=== PATIENT | male | born 1970 | race Two or more races ===

== ENCOUNTER 2020-05-31 06:56 | Inpatient (IN) | payer MEDICARE, OTHER ==
[~2020-05-31] VITALS: Ht 182.9 cm; Wt 186.0 kg
--- NOTE | 2020-05-31 07:10 | NUR ---
MS/RN NOTES PATIENT DIRECT ADMIT FROM [facility] IS [employer] [address] LBS, AMBULATORY WITH ASSIST COMPLAINING OF ABDOMINAL PAIN OF 10/10 LEVEL, ON OXYGEN VIA NC AT 2LITER. PATIENT CALM IN BEHAVIOR, RESPIRATIONS EVEN AND UNLABORED, TO ENDORSE TO AM RN FOR VIRGIE.
[2020-05-31 08:00] VITALS: BP 153/100
--- NOTE | 2020-05-31 08:00 | NUR ---
MS RN OPENING NOTES Received Patient resting in bed. A/O x 4. VS stable with no acute distress. Breathing even and unlabored on room air with no respiratory distress. Patient stated pain level of 10/10 on abdomen and back. Will intervene as ordered. 20g PIV on left hand clean, intact, patent and flushing well. Safety precautions in place. Bed locked and set to lowest position with side rails x 2 up. All needs rendered at this time. Call light within reach. Will continue to monitor.
[2020-05-31] MEDS ORDERED: PREG100C55 MT (08:39)
[2020-05-31] MEDS ORDERED: BENA40TA8 MT (08:39)
[2020-05-31] MEDS ORDERED: DAPA10TA MT (08:39)
[2020-05-31] MEDS ORDERED: SPIR25TA6 MT (08:39)
[2020-05-31] MEDS ORDERED: AMIT50TA3 MT (08:39)
[2020-05-31] MEDS ORDERED: DEXL60CA3 MT (08:39)
[2020-05-31] MEDS ORDERED: DULA1.5P SQ (08:39)
[2020-05-31] MEDS ORDERED: INSU500V SQ (08:39)
[2020-05-31] MEDS ORDERED: METF-442 MT (08:39)
[2020-05-31] MEDS ORDERED: DIGO250T MT (08:39)
[2020-05-31] MEDS ORDERED: LEVE500T20 MT (08:39)
[2020-05-31] MEDS ORDERED: Z GUARD REMEDY 2 OZ OINT TP PRN (10:00)
[2020-05-31] MEDS ORDERED: ONDANSETRON HCL/PF 4 MG/2 ML VIAL IVP PRN (10:00)
[2020-05-31] MEDS ORDERED: ACETAMINOPHEN 325 MG TABLET PO PRN (10:00)
[2020-05-31] MEDS ORDERED: ZOLPIDEM TARTRATE 5 MG TABLET PO PRN (10:00)
[2020-05-31] MEDS: MORPHINE SULFATE INJ 2 MG/ML DISP.SYRIN IV PRN ×2 (10:05→19:05)
[2020-05-31] MEDS ORDERED: DEXTROSE 50%-WATER 50 ML DISP.SYRIN IV PRN (11:00)
[2020-05-31] MEDS: PANTOPRAZOLE 40 MG VIAL IV SCH (11:21)
[2020-05-31] MEDS: LEVETIRACETAM (250 MG) 250 MG TABLET PO SCH ×2 (11:21→20:34)
[2020-05-31] MEDS: BLOOD SUGAR DIAGNOSTIC 1 EACH STRIP IN SCH ×2 (11:34→17:21)
[2020-05-31] MEDS: INSULIN REGULAR, HUMAN 100 UNIT/ML 3 ML VIAL SQ PRN ×2 (11:46→17:38)
[2020-05-31 11:49] LABS: BASOPHILS % (AUTO) 0.1 % (0.0-2.0); EOSINOPHILS % (AUTO) 0.7 % (0.0-6.0); HEMATOCRIT 39 % (39-51); HEMOGLOBIN 12.6 g/dL (13.5-17.5); LYMPHOCYTES # (AUTO) 0.7 /CMM (0.8-4.8); LYMPHOCYTES % (AUTO) 10.8 % (20.0-44.0); MEAN CORPUSCULAR HGB CONC 32 g/dl (31.0-36.0); MEAN CORPUSCULAR VOLUME 93 fL (80-96); MONOCYTES # (AUTO) 0.8 /CMM (0.1-1.30); MONOCYTES % (AUTO) 12.4 % (2.0-12.0); NEUTROPHILS # (AUTO) 4.9 /CMM (1.8-8.9); PLATELET COUNT (AUTO) 204 /CMM (150-450); RED BLOOD CELL COUNT(AUTO) 4.25 MIL/uL (4.5-6.0); WHITE BLOOD COUNT (AUTO) 6.5 K/uL (4.3-11.0)
[2020-05-31 12:08] LABS: CALCIUM, SERUM 8.4 mg/dL (8.5-10.1); CREATININE 0.9 mg/dL (0.6-1.3); POTASSIUM 4.5 mmol/L (3.5-5.1)
[2020-05-31] MEDS: HEPARIN SODIUM, PORCINE 5000 UNITS/1 ML VIAL SQ SCH ×2 (12:44→20:38)
[2020-05-31] MEDS: DIGOXIN 0.125 MG TABLET PO SCH (12:45)
[2020-05-31] MEDS: IV NS 0.9% 1,000 ML IV PRN (14:29)
[2020-05-31 16:00] VITALS: BP 140/100
[2020-05-31] MEDS: PREGABALIN 100 MG CAPSULE PO SCH (17:39)
--- NOTE | 2020-05-31 18:50 | NUR ---
MS RN NOTES Obtained MRSA specimen via right nares at this time. Patient tolerated well.
--- NOTE | 2020-05-31 19:39 | NUR ---
MS RN CLOSING NOTES Patient resting in bed. A/O x 4. VS stable with no acute distress. Breathing even and unlabored on room air with no respiratory distress. Patient stated tolerable pain level on abdomen. Will endorse to oncoming shift. 20g PIV on left hand clean, intact, patent and flushing well with NS infusing at 75ml/hr. Safety precautions in place. Bed locked and set to lowest position with side rails x 2 up. All needs rendered at this time. Call light within reach. Will endorse plan of care to oncoming shift.
--- NOTE | 2020-05-31 19:40 | NUR ---
MS RN OPENING NOTES PATIENT RECEIVED RESTING IN BED A/O X 4. STABLE ON RA WITH BREATHING EVEN AND UNLABORED, NO SOB NOTED. NO SIGNS OF ACUTE DISTRESS. NO CURRENT COMPLAINTS OF PAIN OR DISCOMFORT. PATIENT REMAINING NPO THROUGHOUT THE NIGHT. IF LOCATED ON L HAND #20 RUNNING NS @ 75ML/HR. SAFETY PRECAUTIONS IN PLACE WITH BED IN LOWEST POSITION, CALL LIGHT WITHIN REACH, BREAKS ON, SIDE RAILS UP. WILL CONTINUE TO MONITOR THROUGHOUT THE SHIFT.
[2020-05-31 20:15] VITALS: BP 146/63
[2020-05-31] MEDS: HYDROCODONE/APAP 5/325MG TABLET PO PRN (22:40)
[2020-05-31] MEDS: MAGNESIUM HYDROXIDE 30 ML UDC PO PRN (22:42)
[2020-06-01] MEDS: BLOOD SUGAR DIAGNOSTIC 1 EACH STRIP IN SCH ×4 (00:17→17:53)
[2020-06-01] MEDS: INSULIN REGULAR, HUMAN 100 UNIT/ML 3 ML VIAL SQ PRN ×4 (00:19→17:54)
[2020-06-01] MEDS: MORPHINE SULFATE INJ 2 MG/ML DISP.SYRIN IV PRN ×2 (03:56→14:15)
--- NOTE | 2020-06-01 07:01 | NUR ---
MS RN CLOSING NOTES PATIENT RESTING IN BED A/O X 4. STABLE ON RA WITH BREATHING EVEN AND UNLABORED, NO SOB NOTED. NO SIGNS OF ACUTE DISTRESS. NO CURRENT COMPLAINTS OF PAIN OR DISCOMFORT. PATIENT REMAINING NPO THROUGHOUT THE NIGHT. IF LOCATED ON R HAND #24 RUNNING NS @ 75ML/HR. SAFETY PRECAUTIONS IN PLACE WITH BED IN LOWEST POSITION, CALL LIGHT WITHIN REACH, BREAKS ON, SIDE RAILS UP. ALL NEEDS ATTENDED TO. WILL ENDORSE TO ONCOMING SHIFT ABOUT VIRGIE.
[2020-06-01 07:30] LABS: BASOPHILS % (AUTO) 0.2 % (0.0-2.0); EOSINOPHILS % (AUTO) 0.7 % (0.0-6.0); HEMATOCRIT 36 % (39-51); HEMOGLOBIN 11.6 g/dL (13.5-17.5); LYMPHOCYTES % (AUTO) 14.9 % (20.0-44.0); MEAN CORPUSCULAR HGB CONC 33 g/dl (31.0-36.0); MEAN CORPUSCULAR VOLUME 92 fL (80-96); MONOCYTES # (AUTO) 0.9 /CMM (0.1-1.30); MONOCYTES % (AUTO) 12.9 % (2.0-12.0); NEUTROPHILS # (AUTO) 4.9 /CMM (1.8-8.9); NEUTROPHILS % (AUTO) 71.3 % (43.0-81.0); PLATELET COUNT (AUTO) 211 /CMM (150-450); RED BLOOD CELL COUNT(AUTO) 3.88 MIL/uL (4.5-6.0); WHITE BLOOD COUNT (AUTO) 6.9 K/uL (4.3-11.0)
[2020-06-01 07:53] LABS: CALCIUM, SERUM 8.3 mg/dL (8.5-10.1); CREATININE 0.9 mg/dL (0.6-1.3); MAGNESIUM 2.3 mg/dL (1.8-2.4); POTASSIUM 4.4 mmol/L (3.5-5.1)
[2020-06-01 08:00] VITALS: BP 125/80
--- NOTE | 2020-06-01 08:00 | NUR ---
MS RN OPENING NOTES Received Patient resting in bed. A/O x 4. VS stable with no acute distress. Breathing even and unlabored on room air with no respiratory distress. Patient stated tolerable pain level on abdomen. Will continue to monitor and intervene as ordered. 24g PIV on right hand clean, intact, patent and flushing well. Safety precautions in place. Bed locked and set to lowest position with side rails x 2 up. All needs rendered at this time. Call light within reach. Will continue to monitor.
--- NOTE | 2020-06-01 08:30 | NUR ---
MS RN NOTES Obtained consent for Midline Insertion. Explained risks and benefits. Patient agreed. Placed signed consent in chart.
[2020-06-01] MEDS: AMITRIPTYLINE HCL 25 MG TABLET PO SCH (09:52)
[2020-06-01] MEDS: SPIRONOLACTONE 25 MG TABLET PO SCH (09:52)
[2020-06-01] MEDS: LEVETIRACETAM (250 MG) 250 MG TABLET PO SCH ×2 (09:52→21:37)
[2020-06-01] MEDS: BENAZEPRIL HCL 20 MG TABLET PO SCH (09:53)
[2020-06-01] MEDS: HEPARIN SODIUM, PORCINE 5000 UNITS/1 ML VIAL SQ SCH ×2 (09:53→21:47)
[2020-06-01] MEDS: PREGABALIN 100 MG CAPSULE PO SCH ×2 (09:53→16:43)
[2020-06-01] MEDS: PANTOPRAZOLE 40 MG VIAL IV SCH (10:24)
[2020-06-01] MEDS: HYDROCODONE/APAP 5/325MG TABLET PO PRN (10:25)
[2020-06-01] MEDS ORDERED: K PHOS NEUTRAL 250 MG TABLET PO ONE (10:30)
--- NOTE | 2020-06-01 10:33 | NUR ---
WOUND CARE CONSULT: PT PRESENTS WITH SCARRING TO CHEST AND SOME RASH/REDNESS TO ABDOMINAL/GROIN FOLDS, PRESENT ON ADMISSION. RECOMMENDATIONS MADE FOR SKIN CARE AND PROTECTION. DISCUSSED WITH NURSING STAFF. WILL SEE PRLinden CASTRO IN AGREEMENT WITH PLAN OF CARE.
[2020-06-01] MEDS: DIGOXIN 0.125 MG TABLET PO SCH (13:29)
[2020-06-01 16:00] VITALS: BP 118/70
[2020-06-01] MEDS: CLOTRIMAZOLE 1% 15 GM TUBE TP SCH (16:43)
[2020-06-01] MEDS: SENNOSIDES/DOCUSATE SODIUM 1 TAB TABLET PO SCH (16:43)
[2020-06-01] MEDS: IV NS 0.9% 1,000 ML IV PRN (17:56)
--- NOTE | 2020-06-01 19:39 | NUR ---
MS RN CLOSING NOTES Patient resting in bed. A/O x 4. VS stable with no acute distress. Breathing even and unlabored on room air with no respiratory distress. Patient stated tolerable pain level on abdomen. Will endorse to oncoming shift. 20g PIV on RFA clean, intact, patent and flushing well. 20g PIV on LFA clean, intact, patent and flushing well with NS infusing at 75ml/hr. Safety precautions in place. Bed locked and set to lowest position with side rails x 2 up. All needs rendered at this time. Call light within reach. Will endorse plan of care to oncoming shift.
[2020-06-01 20:00] VITALS: BP 130/78
--- NOTE | 2020-06-01 21:31 | NUR ---
MS RN NOTES bariatric bed delivered, settled patient into bed.
[2020-06-01] MEDS: MAGNESIUM HYDROXIDE 30 ML UDC PO PRN (21:48)
--- NOTE | 2020-06-01 22:31 | NUR ---
MS RN OPENING NOTES PATIENT RECEIVED RESTING IN BED A/O X 4. STABLE ON RA WITH BREATHING EVEN AND UNLABORED, NO SOB NOTED. NO SIGNS OF ACUTE DISTRESS. NO CURRENT COMPLAINTS OF PAIN OR DISCOMFORT. PATIENT REMAINING NPO THROUGHOUT THE NIGHT. IF LOCATED ON LFA HAND #20 RUNNING NS @ 75ML/HR AND RFA #20SL. SAFETY PRECAUTIONS IN PLACE WITH BED IN LOWEST POSITION, CALL LIGHT WITHIN REACH, BREAKS ON, SIDE RAILS UP. WILL CONTINUE TO MONITOR THROUGHOUT THE SHIFT.
[2020-06-02] MEDS: BLOOD SUGAR DIAGNOSTIC 1 EACH STRIP IN SCH ×5 (00:11→23:42)
[2020-06-02] MEDS: INSULIN REGULAR, HUMAN 100 UNIT/ML 3 ML VIAL SQ PRN ×5 (00:21→23:50)
--- NOTE | 2020-06-02 06:50 | NUR ---
MS RN CLOSING NOTES PATIENT RESTING IN BED A/O X 4. STABLE ON RA WITH BREATHING EVEN AND UNLABORED, NO SOB NOTED. NO SIGNS OF ACUTE DISTRESS. NO CURRENT COMPLAINTS OF PAIN OR DISCOMFORT. PATIENT. IV LOCATED ON LFA HAND #20 RUNNING NS @ 75ML/HR AND RFA #20SL. SAFETY PRECAUTIONS IN PLACE WITH BED IN LOWEST POSITION, CALL LIGHT WITHIN REACH, BREAKS ON, SIDE RAILS UP. ALL NEEDS ATTENDED TO. WILL ENDORSE TO ONCOMING SHIFT ABOUT VIRGIE.
[2020-06-02 08:00] VITALS: BP 139/81
[2020-06-02] MEDS: AMITRIPTYLINE HCL 25 MG TABLET PO SCH (08:54)
[2020-06-02] MEDS: SPIRONOLACTONE 25 MG TABLET PO SCH (08:54)
[2020-06-02] MEDS: PANTOPRAZOLE 40 MG VIAL IV SCH (08:54)
[2020-06-02] MEDS: PREGABALIN 100 MG CAPSULE PO SCH ×2 (08:54→16:57)
[2020-06-02] MEDS: LEVETIRACETAM (250 MG) 250 MG TABLET PO SCH ×2 (08:55→20:34)
[2020-06-02] MEDS: SENNOSIDES/DOCUSATE SODIUM 1 TAB TABLET PO SCH (08:55)
[2020-06-02] MEDS: BENAZEPRIL HCL 20 MG TABLET PO SCH (08:55)
[2020-06-02] MEDS: HEPARIN SODIUM, PORCINE 5000 UNITS/1 ML VIAL SQ SCH ×2 (08:58→20:36)
[2020-06-02 09:05] LABS: BASOPHILS % (AUTO) 0.5 % (0.0-2.0); EOSINOPHILS % (AUTO) 1.8 % (0.0-6.0); HEMATOCRIT 37 % (39-51); LYMPHOCYTES # (AUTO) 1.3 /CMM (0.8-4.8); LYMPHOCYTES % (AUTO) 22.9 % (20.0-44.0); MEAN CORPUSCULAR HGB CONC 32 g/dl (31.0-36.0); MEAN CORPUSCULAR VOLUME 93 fL (80-96); MONOCYTES # (AUTO) 0.7 /CMM (0.1-1.30); NEUTROPHILS # (AUTO) 3.5 /CMM (1.8-8.9); NEUTROPHILS % (AUTO) 61.8 % (43.0-81.0); PLATELET COUNT (AUTO) 238 /CMM (150-450); RED BLOOD CELL COUNT(AUTO) 4.02 MIL/uL (4.5-6.0); WHITE BLOOD COUNT (AUTO) 5.7 K/uL (4.3-11.0)
[2020-06-02] MEDS: CLOTRIMAZOLE 1% 15 GM TUBE TP SCH ×2 (09:05→16:57)
[2020-06-02 09:43] LABS: CALCIUM, SERUM 8.2 mg/dL (8.5-10.1); CREATININE 0.9 mg/dL (0.6-1.3); MAGNESIUM 2.2 mg/dL (1.8-2.4); PHOSPHORUS 1.3 mg/dL (2.5-4.9); POTASSIUM 4.3 mmol/L (3.5-5.1)
--- NOTE | 2020-06-02 13:00 | NUR ---
diet advanced and patient tolerated well No abdominal pain or N/V noted
[2020-06-02] MEDS: DIGOXIN 0.125 MG TABLET PO SCH (13:27)
[2020-06-02] MEDS ORDERED: Sodium Phosphate 15 MMOL in IV NS 0.9% 245 ML IV SCH (15:00)
[2020-06-02] MEDS: IV NS 0.9% 1,000 ML IV PRN (15:18)
[2020-06-02 16:24] VITALS: BP 133/76
--- NOTE | 2020-06-02 18:52 | NUR ---
Patient is resting in bed. A/O x 4. VS stable with no acute distress. Breathing even and unlabored on room air with no respiratory distress. Patient denies abdominal pain. Skin care provided. IV lines intact , patent and flushing well., Safety precautions in place. Bed locked and set to lowest position with side rails x 2 up. All needs attended at this time. Call light within reach. Will endorse to next shift for VIRGIE .
--- NOTE | 2020-06-02 19:30 | NUR ---
ms rn opening note received patient in bed. a/ox 4. tolerating room air. respirations are even and unlabored. no s/s sob noted. no s/s pain at this time. in no apparent distress. iv access in rfa#20 patent and saline locked, lfa#20 running ns @75ml/hr. bed is low an dlocked, hob flat, side rials up x3. call light within reach. will continue to monitor.
[2020-06-02 20:00] VITALS: BP 159/88
[2020-06-03] MEDS: BLOOD SUGAR DIAGNOSTIC 1 EACH STRIP IN SCH ×2 (05:14→11:36)
[2020-06-03] MEDS: INSULIN REGULAR, HUMAN 100 UNIT/ML 3 ML VIAL SQ PRN ×2 (05:22→11:40)
--- NOTE | 2020-06-03 06:23 | NUR ---
ms rn closing note patient in bed. a/ox 4. tolerating room air. respirations are even and unlabored. no sob noted. no c/o pain. no distress. iv access maintained in rfa#20 patent and saline locked, lfa#20 running ns @75ml/hr. bed remains low and locked, hob flat, side rials up x3. call light within reach. will endorse to next shift.
[2020-06-03 06:46] LABS: BASOPHILS % (AUTO) 0.5 % (0.0-2.0); EOSINOPHILS % (AUTO) 2.9 % (0.0-6.0); HEMATOCRIT 36 % (39-51); HEMOGLOBIN 11.4 g/dL (13.5-17.5); LYMPHOCYTES # (AUTO) 1.1 /CMM (0.8-4.8); LYMPHOCYTES % (AUTO) 24.7 % (20.0-44.0); MEAN CORPUSCULAR HGB CONC 32 g/dl (31.0-36.0); MEAN CORPUSCULAR VOLUME 93 fL (80-96); MONOCYTES # (AUTO) 0.6 /CMM (0.1-1.30); MONOCYTES % (AUTO) 13.1 % (2.0-12.0); NEUTROPHILS # (AUTO) 2.7 /CMM (1.8-8.9); NEUTROPHILS % (AUTO) 58.8 % (43.0-81.0); PLATELET COUNT (AUTO) 231 /CMM (150-450); RED BLOOD CELL COUNT(AUTO) 3.85 MIL/uL (4.5-6.0); WHITE BLOOD COUNT (AUTO) 4.6 K/uL (4.3-11.0)
[2020-06-03 07:08] LABS: CALCIUM, SERUM 8.5 mg/dL (8.5-10.1); CREATININE 0.9 mg/dL (0.6-1.3); MAGNESIUM 2.1 mg/dL (1.8-2.4); PHOSPHORUS 1.7 mg/dL (2.5-4.9)
--- NOTE | 2020-06-03 07:30 | NUR ---
RN NOTES Received patient in bed resting comfortably in moderate high back rest. A/O x 4. tolerating room air. No signs of distress noted at this time. IV access maintained in RFA#20 patent and saline locked, LFA#20 running NS @75ml/hr. Safety measures in place, bed remains low and locked, side rials up x3. call light within reach. will continue to monitor.
[2020-06-03 08:00] VITALS: BP 113/75
[2020-06-03] MEDS: BENAZEPRIL HCL 20 MG TABLET PO SCH (08:40)
[2020-06-03] MEDS: PREGABALIN 100 MG CAPSULE PO SCH (08:40)
[2020-06-03] MEDS: LEVETIRACETAM (250 MG) 250 MG TABLET PO SCH (08:40)
[2020-06-03] MEDS: AMITRIPTYLINE HCL 25 MG TABLET PO SCH (08:41)
[2020-06-03] MEDS: HEPARIN SODIUM, PORCINE 5000 UNITS/1 ML VIAL SQ SCH (08:41)
[2020-06-03] MEDS: SPIRONOLACTONE 25 MG TABLET PO SCH (08:41)
[2020-06-03] MEDS: SENNOSIDES/DOCUSATE SODIUM 1 TAB TABLET PO SCH (08:41)
[2020-06-03] MEDS: CLOTRIMAZOLE 1% 15 GM TUBE TP SCH (08:50)
[2020-06-03] MEDS ORDERED: Sodium Phosphate 15 MMOL in IV NS 0.9% 245 ML IV SCH (09:30)
[2020-06-03] MEDS: PANTOPRAZOLE 40 MG VIAL IV SCH (11:25)
[2020-06-03] MEDS: DIGOXIN 0.125 MG TABLET PO SCH (13:01)
--- NOTE | 2020-06-03 15:54 | NUR ---
BIOMEDICAL ELECTRONICS TECHNICIAN NOTES PATIENT DISCHARGED IN STABLE CONDITION. A/O X4. ABLE TO MAKE NEEDS KNOWN. V/S TAKEN, STABLE AND RECORDED. PATIENT'S IV REMOVED AND APPLIED PRESSURE DRESSINGS. REFUSED PICTURES ON SKIN BUT NOTED WITH MULTIPLE BRUISES. NAME ARM BAND REMOVED. ALL BELONGINGS CHECKED AND SIGNED INCLUDING HOME MEDICATION. HEALTH TEACHINGS/ DISCHARGED INSTRUCTIONS GIVEN AND VERBALIZED UNDERSTANDING. PATIENT LEFT UNIT AMBULATORY WITH NO ACUTE SIGNS OF DISTRESS. PATIENT ASSISTED TO THE LOBBY AND WAS PICKED UP BY FATHER. CHARGE NURSE AWARE OF DISCHARGED.
[2020-06-03 16:00] VITALS: BP 153/80
== END 2020-06-03 15:55 | disposition home or self-care (01) | DRG 439 ==
LOC: MEDSG2 06:56
PROVIDERS: ADMIT Nurse Practitioner Acute Care; ATTEND Nurse Practitioner Acute Care
DX: K85.90 Acute pancreatitis without necrosis or infection, unspecified (principal); D68.59 Other primary thrombophilia; Z68.43 Body mass index [BMI] 50.0-59.9, adult; E87.1 Hypo-osmolality and hyponatremia; G40.909 Epilepsy, unspecified, not intractable, without status epilepticus; I10 Essential (primary) hypertension; E66.01 Morbid (severe) obesity due to excess calories; E11.9 Type 2 diabetes mellitus without complications; Z86.718 Personal history of other venous thrombosis and embolism; D63.8 Anemia in other chronic diseases classified elsewhere
CPT/HCPCS: 36415; 80048-TC; 80061-TC; 80162-TC; 82962-TC; 83690-TC; 83735-TC; 84100-TC; 85025-TC; 87081-TC; A9563; C9113; G0378; J1644; J1815; J2270; J7030; J7050